=== PATIENT | male | born 1945 | race Caucasian/White ===

== ENCOUNTER → 2021-05-18 11:49 | Outpatient (CLI) | payer MEDICARE, SELFPAY ==
[2021-05-18 12:32] LABS: Add Manual Diff / Slide Review NO; Basophils Absolute Auto 0 /uL (0-100); Basophils Percent Auto 0.8 % (0-2); Eosinophils Absolute Auto 0 /uL (0-450); Eosinophils Percent Auto 0.6 % (2-4); Hematocrit 32.7 % (41-53); Hemoglobin 10.6 g/dL (13.5-17.5); Lymphocytes Absolute Auto 1100 /uL (1100-4500); Lymphocytes Percent Auto 21.3 % (25-40); Mean Corpuscular HGB Conc 32.3 % (30-36); Mean Corpuscular Hemoglobin 27.3 PG (26-34); Mean Corpuscular Volume 84.5 fL (80-100); Monocytes Absolute Auto 700 /uL (0-900); Monocytes Percent Auto 13.4 % (3-14); Neutrophils Absolute Auto 3200 /uL (1500-7000); Neutrophils Percent Auto 63.9 % (50-75); Platelet Count 212 X10^3/uL (150-400); Red Blood Cell Count 3.88 X10^6/uL (4.5-5.9); Red Cell Distribution Width 15.1 % (11.6-14.8)
[2021-05-18 12:52] LABS: Alanine Aminotransferase 15 IU/L (<50); Albumin 3.7 g/dL (3.5-5.0); Albumin Globulin Ratio 1.1 (1.0-2.8); Alkaline Phosphatase 68 U/L (38-126); Aspartate Aminotransferase 26 IU/L (17-59); BUN Creatinine Ratio 16.5 (6-22); Bilirubin Total 0.5 mg/dL (0.2-1.3); Blood Urea Nitrogen 14 mg/dL (9-20); Calcium 9.1 mg/dL (8.4-10.2); Carbon Dioxide 25 mmol/L (22-32); Chloride 103 mmol/L (98-107); Estimated Glomerular Filt Rate > 60.0 mL/min (>60); Globulin 3.4 g/dL (1.7-4.1); Glucose 99 mg/dL (80-110); HEMOLYSIS < 15 (0-50); Sodium 137 mmol/L (137-145); Total Protein 7.1 g/dL (6.3-8.2)
[2021-05-19 04:08] LABS: IGA 85 mg/dL (61-437); IGG 956 mg/dL (603-1613); IGM 1675 mg/dL (15-143)
[2021-05-19 14:07] LABS: Free Kappa Lt Chains, Serum 92.4 mg/L (3.3-19.4); Free Lambda Lt Chains,Serum 22.9 mg/L (5.7-26.3)
[2021-05-22 21:10] LABS: Albumin 3.1 g/dL (2.9-4.4); Alpha 1 Globulin 0.4 g/dL (0.0-0.4); Alpha 2 Globulin 0.9 g/dL (0.4-1.0); Beta 1 Globulin 0.7 g/dL (0.7-1.3); Gamma Globulin 2.1 g/dL (0.4-1.8); Immunoglobulin A 83 mg/dL (61-437); Immunoglobulin G 927 mg/dL (603-1613); Immunoglobulin M 1734 mg/dL (15-143); Protein, Total 7.2 g/dL (6.0-8.5)
== END ==
PROVIDERS: PCP Family Medicine; Referring Provider Physician Assistant; Visit Provider Physician Assistant
DX: C88.0 Waldenstrom macroglobulinemia (principal); I10 Essential (primary) hypertension
CPT/HCPCS: 36415; 80053; 82784; 83883; 84155; 84165; 85025